=== PATIENT | male | born 1940 | race Caucasian/White ===

== ENCOUNTER 2017-12-20 16:25 | Emergency (ER) | payer MEDICARE, OTHER ==
[2017-12-20 16:34] VITALS: BP 143/80
--- NOTE | 2017-12-20 17:04 | ED Physician Documentation ---
History of Present Illness - Stated complaint Stated Complaint: BILAT FEET PX - Chief complaint Chief Complaint: Ext Problem - History obtained from History obtained from: Patient, Caregiver - History of Present Illness Timing: How many days ago (5) - Additonal information Additional information: 77-year-old male history of hypertension and coronary artery disease has recently been placed into respite care for an adult family home when the home he was living in with his daughter was sold. The caretakers at the home he is in have been taking good care of his feet ever noted that he has significant athlete's foot bilaterally they have been treating him with Lotrimin without success. They are concerned about some redness that is occurred on the top of his foot as well. Review of Systems Constitutional: denies: Fever, Chills, Myalgias, Fatigue Eyes: denies: Decreased vision Ears: denies: Ear pain Nose: denies: Congestion Throat: denies: Sore throat Cardiac: denies: Chest pain / pressure Respiratory: denies: Dyspnea, Cough GI: denies: Nausea, Vomiting : denies: Dysuria Musculoskeletal: reports: Extremity pain, Extremity swelling. denies: Neck pain , Back pain Neurologic: denies: Generalized weakness, Focal weakness, Numbness PD PAST MEDICAL HISTORY - Past Medical History Cardiovascular: Hypertension, Coronary artery disease Respiratory: Other Neuro: Tremors GI: GERD, Colon polyps : Chronic bladder infection, Renal insuffiency Musculoskeletal: Gout Other Past Medical History: asbestosis, bells palsy - Present Medications Home Medications: Ambulatory Orders Medication Instructions Recorded Confirmed Acetaminophen 1 tab PO Q6HR PRN 12/20/17 12/20/17 Allopurinol 2 tab PO DAILY 12/20/17 12/20/17 Aspirin [Adult Aspirin Regimen] 1 tab PO DAILY 12/20/17 12/20/17 Atorvastatin [Lipitor] 1 tab PO DAILY 12/20/17 12/20/17 Cephalexin [Keflex] 500 mg PO TID #21 capsule 12/20/17 Clotrimazole [Clotrimazole AF] 1 applic TOP BID 12/20/17 12/20/17 D3/Folic Acid/Collagen,Hydroly 1 tab PO DAILY 12/20/17 12/20/17 [Cyfolex Capsule] Docusate Sodium 1 tab PO DAILY 12/20/17 12/20/17 Escitalopram [Lexapro] 1 tab PO DAILY 12/20/17 12/20/17 Metoprolol Tartrate 12 tab PO BID 12/20/17 12/20/17 Mirtazapine 1 tab PO DAILY PM 12/20/17 12/20/17 Terbinafine [Lamisil] 250 mg PO DAILY #14 tablet 12/20/17 hydrOXYzine pamoate [Hydroxyzine 1 tab PO TID PRN 12/20/17 12/20/17 Pamoate] - Allergies Allergies/Adverse Reactions: Allergies Allergy/AdvReac Type Severity Reaction Status Date / Time gabapentin Allergy Unknown Verified 12/20/17 16:35 - Social History Does the pt smoke?: No Smoking Status: Never smoker PD ED PE NORMAL - Vitals Vital signs reviewed: Yes (hypertensive ) - General General: No acute distress, Well developed/nourished - HEENT HEENT: Atraumatic, PERRL - Respiratory Respiratory: No respiratory distress - Derm Derm: Normal color, Warm and dry - Extremities Extremities: No deformity, Other (There is deep fissure and cracking of the skin between the 1st and 2nd toes bilaterally. There is involement of the lessor toes as well and there is a small area of blanching erythema to the dorsum of the right foot consistent with superficial superinfecion with a cellulitis.) - Neuro Neuro: supervisor doping 2-12 intact, No motor deficit, No sensory deficit, Normal speech Eye Opening: Spontaneous Motor: Obeys Commands Verbal: Oriented GCS Score: 15 - Psych Psych: Normal mood, Normal affect Results - Vitals Vitals: Vital Signs - 24 hr 12/20/17 16:28 Temperature 36.5 C Heart Rate 64 Respiratory 16 Rate Blood Pressure 143/80 H O2 Saturation 98 Oxygen O2 Source Simple Mask PD MEDICAL DECISION MAKING - ED course Complexity details: considered differential, d/w patient, d/w family ED course: 77-year-old male who is being treated in a respite facility for athlete's foot has not had improvement with treatment with Lotrimin. He does appear to have some subtle infection to the dorsum of the right foot and he has significant tinea between the toes especially on the right side between the first and second toe he does have this on both feet between most of the medial toes. We will place him on some terbinafine orally as a failure of topical treatment and he does have some superficial superinfection and will place him on some Keflex for this as well. - Sepsis Event Vital Signs: Vital Signs - 24 hr 12/20/17 16:28 Temperature 36.5 C Heart Rate 64 Respiratory 16 Rate Blood Pressure 143/80 H O2 Saturation 98 Oxygen O2 Source Simple Mask Departure - Departure Disposition: Home, Self Care Clinical Impression: Athletes foot Qualifiers: Laterality: bilateral Qualified Code(s): B35.3 - Tinea pedis Condition: Stable Instructions: ED Fungal Infec Athlete Foot Follow-Up: Your, doctor [Other] Prescriptions: Cephalexin [Keflex] 500 mg PO TID #21 capsule Terbinafine [Lamisil] 250 mg PO DAILY #14 tablet
== END 2017-12-20 17:21 | disposition home or self-care (01) ==
LOC: ED 16:25
DX: B35.3 Tinea pedis (principal); I10 Essential (primary) hypertension; Z79.82 Long term (current) use of aspirin
CPT/HCPCS: 99283

== ENCOUNTER 2018-01-20 14:00 | Outpatient (CLI) | payer MEDICARE, OTHER ==
[2018-01-20 18:09] LABS: HGB - HEMOGLOBIN 14.8 g/dL (14.0-18.0)
[2018-01-20 18:22] LABS: CALCIUM 8.6 mg/dL (8.5-10.3); CREATININE 1.3 mg/dL (0.6-1.2)
== END 2018-01-20 14:01 | disposition home or self-care (01) ==
LOC: LAB.F 14:00
PROVIDERS: ATTEND Student in an Organized Health Care Education/Training Program
DX: N05.9 Unspecified nephritic syndrome with unspecified morphologic changes (principal); D64.9 Anemia, unspecified; R80.9 Proteinuria, unspecified; N25.81 Secondary hyperparathyroidism of renal origin
CPT/HCPCS: 36415; 80048; 82570; 83970; 84156; 85014; 85018

== ENCOUNTER 2018-01-21 08:00 | Outpatient (CLI) | payer MEDICARE, OTHER ==
[2018-01-21 18:09] LABS: CREATININE,URINE 148.2 mg/dL; PROTEIN/CREATININE RATIO,URINE 0.1 (<=0.2)
== END 2018-01-21 08:01 | disposition home or self-care (01) ==
LOC: LAB.F 08:00
PROVIDERS: ATTEND Student in an Organized Health Care Education/Training Program
DX: R80.9 Proteinuria, unspecified (principal)
CPT/HCPCS: 82570; 84156